=== PATIENT | female | born 1955 ===

== ENCOUNTER 2021-04-22 21:14 | Emergency (ER) | payer BC ==
--- NOTE | 2021-04-22 21:55 | EDM.PDOC ---
ED HPI GENERAL MEDICAL PROBLEM - General Chief Complaint: Skin Complaint Stated Complaint: INFECTION MOVING ACROSS FOOT Time Seen by Provider: 04/22/21 21:41 Source of Information: Reports: Patient, RN, RN Notes Reviewed History Limitations: Reports: No Limitations - History of Present Illness INITIAL COMMENTS - FREE TEXT/NARRATIVE: Kalina is a 65 y/o female who presents to the ED via personal vehicle with complaints of pain, swelling, and redness to her right foot. The patient states she noticed pain and swelling to the dorsal aspect of her right foot yesterday. Following a pedicure today, the redness, swelling, and pain have moved proximally up into her anterolateral ankle. The patient denies recent injury or trauma to the extremity; she denies history of injury or surgery to the extremity. The patient does attest to a history of mixed connective tissue disease. She has taken no medications for her symptoms. Right Foot Pain Score (Numeric/FACES): 2 - Related Data Allergies Allergy/AdvReac Type Severity Reaction Status Date / Time morphine Allergy Rash Verified 04/22/21 21:35 Penicillins Allergy Rash Verified 04/22/21 21:36 Sulfa (Sulfonamide Allergy Rash Verified 04/22/21 21:36 Antibiotics) Home Meds: Home Meds Hydroxychloroquine [Plaquenil] 1 tab PO ASDIRECTED 04/22/21 [History] ED ROS GENERAL - Review of Systems Review Of Systems: Comprehensive ROS is negative, except as noted in HPI. ED EXAM, SKIN/RASH Exam: See Below Exam Limited By: No Limitations General Appearance: Alert, No Apparent Distress Respiratory/Chest: No Respiratory Distress, Lungs Clear, Normal Breath Sounds, No Accessory Muscle Use, Chest Non-Tender Cardiovascular: Normal Peripheral Pulses, Regular Rate, Rhythm, No Edema, No Gallop, No JVD, No Murmur, No Rub Peripheral Pulses: 2+: Radial (L), Radial (R), Dorsalis Pedis (L), Dorsalis Pedis (R) Extremities: Normal Capillary Refill, Joint Swelling (To right lateral ankle), Leg Pain (To right ankle and foot), Increased Warmth (To right lateral ankle), Redness. No: Mottled, Pallor Neurological: Alert, Oriented, CN II-XII Intact, Normal Cognition, Normal Gait, No Motor/Sensory Deficits Psychiatric: Normal Affect, Normal Mood Skin: Warm, Dry, Intact, No Rash, Erythema (To right lateral ankle), Increased Warmth (To right lateral ankle). No: Excoriations, Mottled, Pallor, Petechiae Location, Skin: Lower Extremity, Right Characteristics: Erythematous Associated features: Warmth, Tenderness, Swelling, Inflammation. No: Crusting, Weeping Course - Vital Signs Last Recorded V/S: Last Vital Signs Temp 98.8 F 04/22/21 21:32 Pulse 85 04/22/21 21:32 Resp 16 04/22/21 21:32 BP 154/66 H 04/22/21 21:32 Pulse Ox 98 04/22/21 21:32 - Orders/Labs/Meds Labs: Laboratory Tests 04/22/21 04/22/21 04/22/21 Range/Units 21:50 21:50 21:50 ESR 7 (0-20) mm/hr D-Dimer, Quantitative 151 (0-400) ng/mL C-Reactive Protein < 0.2 (0.0-0.9) mg/dL Meds: Medications Discontinued Medications Generic Name Dose Route Start Last Admin Trade Name Thangq PRN Reason Stop Dose Admin Clindamycin HCl 300 mg 04/22/21 22:47 04/22/21 22:58 Clindamycin Hcl 150 Mg Cap PO 04/22/21 22:48 300 mg ONETIME ONE Administration - Re-Assessments/Exams Free Text/Narrative Re-Assessment/Exam: 04/22/21 Patient requesting X-ray, discussed lack of injury or mechanism of trauma and roll of xray for r/o fracture or dislocation. Patient states she is worried about blood clots and requests an ultrasound, discussed mechanism of blood clot formation and typical presentation; will check d-dimer. Given history of MCTD will check ESR and CRP; both normal. Findings of examination and lab work reviewed with patient. Will treat cellulitis with Clindamycin. Red flag signs and symptoms which would warrant reevaluation reviewed. Patient verbalized understanding and agreement with the plan of care. Departure - Departure Time of Disposition: 22:51 Disposition: Home, Self-Care 01 Condition: Good Clinical Impression: Cellulitis Qualifiers: Site of cellulitis: extremity Site of cellulitis of extremity: lower extremity Laterality: right Qualified Code(s): L03.115 - Cellulitis of right lower limb - Discharge Information *PRESCRIPTION DRUG MONITORING PROGRAM REVIEWED*: Not Applicable *COPY OF PRESCRIPTION DRUG MONITORING REPORT IN PATIENT PRIMITIVO: Not Applicable Instructions: Cellulitis, Adult Forms: ED Department Discharge Additional Instructions: Rx: Clindamycin 1.) Take all of your antibiotic until gone, even as symptoms improve. 2.) Drink plenty of water to stay hydrated while on antibiotics. 3.) Eating yogurt or taking a probiotic may help with stomach upset while on t his medication. 4.) You may apply ice to the affected area as swelling persists. 5.) You may take ibuprofen (Advil/Motrin) 400mg every six hours, as pain and swelling persists. You may also take acetaminophen (Tylenol) 650mg every six hours, as pain persists. You may stagger these medications so you are receiving a dose every three hours. Sepsis Event Note (ED) - Evaluation Sepsis Screening Result: No Definite Risk - Focused Exam Vital Signs: Vital Signs Temp Pulse Resp BP Pulse Ox 04/22/21 21:32 98.8 F 85 16 154/66 H 98
[2021-04-22] MEDS ORDERED: Clindamycin HCl 150 MG Cap PO ONE (22:47)
== END 2021-04-22 23:00 | disposition home or self-care (01) ==
LOC: DL.ED 21:14
DX: L03.115 Cellulitis of right lower limb (principal); Z88.5 Allergy status to narcotic agent; Z88.0 Allergy status to penicillin; Z88.2 Allergy status to sulfonamides
CPT/HCPCS: 36415; 85379; 85651; 86140; 99283; A9270